=== PATIENT | male | born 1955 | race Caucasian/White ===

== ENCOUNTER → 2017-08-06 | Outpatient (CLI) | payer OTHER ==
[2017-08-06 17:46] LABS: MEAN CORPUSCULAR HEMOGLOBIN 30.2 pg (27.0-33.0); MEAN CORPUSCULAR HGB CONC 34.4 g/dl (32.0-36.5); MEAN CORPUSCULAR VOLUME 87.8 fl (80.0-96.0); RED CELL DISTRIBUTION WIDTH 13.8 % (11.5-14.5); WHITE BLOOD COUNT 10.4 10^3/uL (4.0-10.0)
[2017-08-06 17:53] LABS: CALCIUM LEVEL 8.9 MG/DL (8.8-10.2); CREATININE FOR GFR 1.41 MG/DL (0.70-1.30); POTASSIUM SERUM 4.6 MEQ/L (3.5-5.1)
[2017-08-08 14:09] LABS: PSA FREE 1.15 ng/mL; PSA TOTAL 4.8 ng/mL (0.0-4.0)
== END ==
LOC: M SMT 14:06
PROVIDERS: ATTEND Urology
DX: R33.9 Retention of urine, unspecified (principal)

== ENCOUNTER → 2017-08-24 | Outpatient (CLI) | payer OTHER ==
--- NOTE | 2017-08-24 13:22 | REP ---
RENAL ULTRASOUND: Real-time sonographic evaluation of kidneys performed. The kidneys are normal in size and echotexture, right kidney measuring 9.9 x 4.7 x 4.6 cm and left kidney 12.9 x 5.9 x 6.9 cm. There is no hydronephrosis bilaterally. Vascular calcifications are seen in both kidneys. There is a cyst in the upper pole of the left kidney 2.8 x 2.5 x 2.2 cm and a cyst containing septations in the lower pole of the left kidney 4.8 x 3.2 x 4.9 cm. There appear to be two thin internal septations within this left lower pole cyst. Incidental note is made of a complex septated cyst in the right lobe of the liver 2.6 x 2.6 x 2.5 cm. The urinary bladder is not distended and not evaluated. IMPRESSION: No hydronephrosis. Simple cyst upper pole left kidney. Cyst lower pole left kidney contains two thin internal septations. Complex septated cyst right lobe of the liver as discussed above. Signed by Luis Grant MD 08/24/2017 04:32 P
== END ==
LOC: M RAD 10:59
PROVIDERS: ATTEND Urology
DX: N28.1 Cyst of kidney, acquired (principal)

== ENCOUNTER → 2017-09-28 | Outpatient (REF) | payer OTHER ==
[~2017-09-28] MED LIST: CLAR10CA3 PO; FLOM5CAP PO; VITA-182 PO
== END ==
LOC: M SMT 17:20
PROVIDERS: ATTEND Urology
DX: Z01.818 Encounter for other preprocedural examination (principal); N40.1 Benign prostatic hyperplasia with lower urinary tract symptoms; N13.8 Other obstructive and reflux uropathy

== ENCOUNTER 2017-10-06 10:33 | Inpatient (IN) | payer OTHER ==
[~2017-10-06] VITALS: Ht 177.8 cm; Wt 80.3 kg
[2017-10-06] VITALS (7 sets, daily range): BP systolic 140–178; BP diastolic 63–88
[~2017-10-06 10:33] MED LIST changes: +MIDAZOLAM INJ 2 MG/2 ML VIAL (J2250) As Ordered ONE; +PHENYLephrine HCL 500 MCG/5 ML (100MCG/ML) SYRINGE (J2370) As Ordered ONE; +fentaNYL 100 MCG/2 ML INJECTION (J3010) As Ordered ONE
[2017-10-06] MEDS ORDERED: LIDOCAINE 1% MDV 20ML VIAL SQ PRN (10:45)
[2017-10-06] MEDS ORDERED: LR 1,000 ML IV ONE (10:45)
[2017-10-06] MEDS ORDERED: ceFAZolin 2 GM/D5W 50 ML IV BAG (J0690 PER 500MG) As Ordered ONE (10:49)
[2017-10-06] MEDS ORDERED: HYDROmorphone HCL 2 MG/ML 1ML VIAL (J1170) As Ordered ONE ×2 (12:32→14:56)
[2017-10-06] MEDS ORDERED: ROCURONIUM BROMIDE 50 MG/5 ML VIAL As Ordered ONE ×3 (12:33→14:19)
[2017-10-06] MEDS ORDERED: ONDANSETRON 4MG/2ML VIAL (J2405) As Ordered ONE (12:34)
[2017-10-06] MEDS ORDERED: KETOROLAC 60 MG/2 ML VIAL (J1885) As Ordered ONE (12:34)
[2017-10-06] MEDS ORDERED: PROPOFOL 200 MG/20 ML VIAL As Ordered ONE (12:34)
[2017-10-06] MEDS ORDERED: dexameTHASONE 4 MG/ML 1ML VIAL (J1100) As Ordered ONE (12:34)
[2017-10-06] MEDS ORDERED: LIDOCAINE 2% INJ 100 MG/5 ML SDV (FOR ANES.) As Ordered ONE (12:34)
[2017-10-06] MEDS ORDERED: METHYLENE BLUE 0.5% (5MG/ML) 10 ML AMP (PROVAYBLUE)(Q9968 PER 1MG) As Ordered ONE (12:58)
[2017-10-06] MEDS ORDERED: LABETALOL HCL 100 MG/20 ML VIAL As Ordered ONE (13:10)
[2017-10-06] MEDS ORDERED: HYDROmorphone HCL 1 MG/ML SYRINGE (J1170) IV PRN (15:30)
[2017-10-06] MEDS ORDERED: PERCOCET 5MG/325MG TAB PO PRN (15:30)
[2017-10-06] MEDS ORDERED: oxyCODONE 5MG TAB PO PRN (15:30)
[2017-10-06] MEDS ORDERED: fentaNYL 100 MCG/2 ML INJECTION (J3010) IV PRN (15:30)
[2017-10-06] MEDS ORDERED: MORPHINE 4 MG/ML 1ML SYRINGE IV PRN (15:30)
[2017-10-06] MEDS ORDERED: ONDANSETRON 4MG/2ML VIAL (J2405) IV PRN ×2 (15:30)
[2017-10-06] MEDS ORDERED: LR 1,000 ML IV SCH (15:30)
[2017-10-06 15:53] LABS: MEAN CORPUSCULAR HEMOGLOBIN 30.1 pg (27.0-33.0); MEAN CORPUSCULAR HGB CONC 35.5 g/dl (32.0-36.5); MEAN CORPUSCULAR VOLUME 84.8 fl (80.0-96.0); PLATELET COUNT, AUTOMATED 223 10^3/uL (150-450); RED CELL DISTRIBUTION WIDTH 12.8 % (11.5-14.5); WHITE BLOOD COUNT 14.8 10^3/uL (4.0-10.0)
[2017-10-06 16:07] LABS: ANION GAP 7 MEQ/L (8-16); BLOOD UREA NITROGEN 17 MG/DL (7-18); CALCIUM LEVEL 8.4 MG/DL (8.8-10.2); CARBON DIOXIDE LEVEL 29 MEQ/L (21-32); CHLORIDE LEVEL 105 MEQ/L (98-107); CREATININE FOR GFR 1.24 MG/DL (0.70-1.30); GLOMERULAR FILTRATION RATE > 60.0 (>49); GLUCOSE, FASTING 152 MG/DL (80-110); POTASSIUM SERUM 4.3 MEQ/L (3.5-5.1); SODIUM LEVEL 141 MEQ/L (136-145)
[2017-10-06] MEDS: KCL 20MEQ IN D5/0.45NS 1000ML 1,000 ML IV SCH (16:26)
[2017-10-06] MEDS: PANTOPRAZOLE 40MG INJ (PROTONIX) (C9113) IV SCH (18:47)
[2017-10-06] MEDS: ACETAMINOPHEN 650MG ER TAB (TYLENOL ARTHRITIS) PO SCH (21:17)
[2017-10-06] MEDS: KETOROLAC 30 MG/ML VIAL (J1885) IV SCH (21:17)
--- NOTE | 2017-10-06 21:34 | RO ---
DATE OF PROCEDURE: 10/06/2017 PREOPERATIVE DIAGNOSES: Prostatic hypertrophy plus bladder outlet obstruction. POSTOPERATIVE DIAGNOSES: Prostatic hypertrophy plus bladder outlet obstruction. SURGERY PERFORMED: Robotic-assisted simple prostatectomy. SURGEON: Greg Keene MD [employer]: Jessica Kumari ANESTHESIA: General. FINDINGS: Giant prostatic hypertrophy plus bladder outlet obstruction. COMPLICATIONS: None. ESTIMATED BLOOD LOSS: 50 mL HISTORY OF PRESENT ILLNESS: This is a 62-year-old male patient that has bladder outlet obstruction due to benign prostatic hypertrophy. The patient has a Mcwilliams catheter and has failed medical therapy. He has a severe large median lobe. For this reason he has consented for robotic assisted simple prostatectomy. PROCEDURE DESCRIPTION: With the patient under general anesthesia in supine modified low lithotomy position, after prepping and draping the area of concern, which included the entire genitalia and abdomen, we started by introducing a Mcwilliams catheter, #16-Hungarian into the bladder, inflated the balloon to 10 mL. We then proceeded to do an incision supraumbilically for about 2 cm in length in the midline. Through this incision was opened up peritoneal cavity and placed a balloon trocar and inflated the balloon to 40 ml, insufflated the abdomen with CO2 at a maximum pressure of 15 at high flow. We then proceeded to actively place the other trocar in a fan-shaped manner. On the right side two metallic trocars, 8 mm metallic trocars, 8 cm away from each other, on the left side 12 mm VersaStep and 8 cm away from this one an 8 mm metallic trocar in the left side in fan-shaped manner also. We then placed the patient in steep Trendelenburg position and docked the robot. On the left arm we used monopolar scissors and on the right arm we used ProGrasp for the third arm and bipolar PK on the right arm. We then proceeded to actively dissect the urachals and dropped the bladder. We then proceeded to actively with the monopolar scissors coag. We did a tranverse incision in the bladder and identified the Mcwilliams catheter, deflated the balloon and identified the giant middle lobe of the prostatic hypertrophy. We then proceeded to actively put a CT-1 needle and a ##0 Vicryl stitch in the adenoma of the median lobe of the prostate to actively have it under traction. We then passed the Ivan needle #0 silk percutaneously and passed it through the anterior bladder neck to retract the anterior bladder neck anteriorly. This exposed the trigone, both ureteral orifices and giant hyperplasia of the prostate with the middle lobe. We then proceeded with monopolar scissors to score the urothelium underneath the middle lobe near the trigone and in a circular fashion we dissected the prostate out. Once we could actually find the surgical capsule with round dissection and monopolar scissors we dissected the adenoma, lateral lobes and middle lobes and cut it at the apex of the urethra. At that moment in time we placed this into a 10 mm Endo Catch bag and then secured hemostasis with #3-0 chromic in a running fashion starting at 3-o'clock and running it to 9-o'clock with multiple stitches. This secured hemostasis. We placed FLOSEAL in the fossa of the prostatic fossa and then passed a 22-Hungarian Mcwilliams catheter three way, inflated the balloon to 20 mL in the bladder and then put it to traction to the bladder neck. We then closed the incision of the bladder with a Quill stitch in a running fashion, an absorbable barbed suture, double needle, #2-0 in a running fashion starting from the right side to the left side and then with a second needle we did a second plane and tied it on the left side. We tested it with 250 mL of normal saline and it was watertight. We then proceeded to actually take the third arm and place a drain and then took all the instruments out, undocked the robot and took all the trocars out and took the specimen through the midline incision. We closed the midline incision with separate stitches of #2-0 Vicryl and then closed the skin of each incision site with #4-0 Monocryl subcuticular stitches. We then proceeded to actively place Mastisol, Steri-Strips, telfa and Tegaderm on top of the incision site. We placed the drain to bulb suction. We then proceeded to actively put the Mcwilliams to gravity and put irrigation with normal saline through the three-way Mcwilliams catheter. PLAN: The patient will pass through recovery and then to the floor. Once irrigation is clear we will discontinue the irrgation. The patient will go home with a Mcwilliams catheter once he is tolerating pain medication orally and also regular diet. There were no complications during surgery. Pathology specimen sent: Prostate.
[2017-10-07] MEDS: KCL 20MEQ IN D5/0.45NS 1000ML 1,000 ML IV SCH ×3 (00:15→15:02)
[2017-10-07 02:00] VITALS: BP 117/63
[2017-10-07] MEDS: ACETAMINOPHEN 650MG ER TAB (TYLENOL ARTHRITIS) PO SCH ×3 (05:35→21:04)
[2017-10-07] MEDS: KETOROLAC 30 MG/ML VIAL (J1885) IV SCH ×2 (05:36→13:18)
[2017-10-07 06:00] VITALS: BP 140/77
[2017-10-07 06:59] LABS: MEAN CORPUSCULAR HEMOGLOBIN 29.9 pg (27.0-33.0); MEAN CORPUSCULAR HGB CONC 35.2 g/dl (32.0-36.5); MEAN CORPUSCULAR VOLUME 84.8 fl (80.0-96.0); PLATELET COUNT, AUTOMATED 232 10^3/uL (150-450); RED CELL DISTRIBUTION WIDTH 12.9 % (11.5-14.5); WHITE BLOOD COUNT 12.8 10^3/uL (4.0-10.0)
[2017-10-07 07:12] LABS: ANION GAP 6 MEQ/L (8-16); BLOOD UREA NITROGEN 13 MG/DL (7-18); CALCIUM LEVEL 8.2 MG/DL (8.8-10.2); CARBON DIOXIDE LEVEL 27 MEQ/L (21-32); CHLORIDE LEVEL 107 MEQ/L (98-107); CREATININE FOR GFR 1.11 MG/DL (0.70-1.30); GLOMERULAR FILTRATION RATE > 60.0 (>49); GLUCOSE, FASTING 109 MG/DL (80-110); POTASSIUM SERUM 4.5 MEQ/L (3.5-5.1); SODIUM LEVEL 140 MEQ/L (136-145)
[2017-10-07] MEDS: PANTOPRAZOLE 40MG INJ (PROTONIX) (C9113) IV SCH (08:38)
[2017-10-07 10:00] VITALS: BP 145/70
[2017-10-07 14:00] VITALS: BP 135/65
[2017-10-07 18:00] VITALS: BP_SYST 122; BP_SYST 136; BP_DIAS 64; BP_DIAS 82
[2017-10-07 22:00] VITALS: BP 150/76
[2017-10-08 06:00] VITALS: BP 142/75
[2017-10-08] MEDS ORDERED: CIPROFLOXACIN 500 MG TAB PO SCH (06:00)
[2017-10-08] MEDS: ACETAMINOPHEN 650MG ER TAB (TYLENOL ARTHRITIS) PO SCH (06:02)
[2017-10-08 07:30] LABS: MEAN CORPUSCULAR HEMOGLOBIN 30.2 pg (27.0-33.0); MEAN CORPUSCULAR HGB CONC 35.3 g/dl (32.0-36.5); MEAN CORPUSCULAR VOLUME 85.6 fl (80.0-96.0); PLATELET COUNT, AUTOMATED 224 10^3/uL (150-450); RED CELL DISTRIBUTION WIDTH 12.8 % (11.5-14.5); WHITE BLOOD COUNT 10.7 10^3/uL (4.0-10.0)
[2017-10-08 07:46] LABS: ANION GAP 7 MEQ/L (8-16); BLOOD UREA NITROGEN 15 MG/DL (7-18); CALCIUM LEVEL 8.4 MG/DL (8.8-10.2); CARBON DIOXIDE LEVEL 27 MEQ/L (21-32); CHLORIDE LEVEL 108 MEQ/L (98-107); CREATININE FOR GFR 1.19 MG/DL (0.70-1.30); GLOMERULAR FILTRATION RATE > 60.0 (>49); GLUCOSE, FASTING 86 MG/DL (80-110); POTASSIUM SERUM 4.6 MEQ/L (3.5-5.1); SODIUM LEVEL 142 MEQ/L (136-145)
[2017-10-08 08:15] VITALS: BP 142/74
[2017-10-08] MEDS: PANTOPRAZOLE 40MG INJ (PROTONIX) (C9113) IV SCH (09:51)
[2017-10-08] MEDS ORDERED: CIPR500T3 PO (10:25)
[2017-10-08] MEDS ORDERED: TYLE650T35 PO (10:25)
--- NOTE | 2017-10-08 16:38 | DSES ---
DATE OF ADMISSION: 10/06/2017 DATE OF DISCHARGE: 10/08/2017 ADMISSION DIAGNOSIS: Bladder outlet obstruction due to benign prostatic hypertrophy. DISCHARGE DIAGNOSIS: Bladder outlet obstruction due to benign prostatic hypertrophy. SURGERY PERFORMED: Robotic-assisted simple prostatectomy. ADMITTING SURGEON: Dr. Greg Keene DISCHARGE SURGEON: Dr. Greg Keene SURGERY PERFORMED BY: Dr. Greg Keene HISTORY OF PRESENT ILLNESS: This is a 62-year-old male patient that has a bladder outlet obstruction due to severe enlargement of the prostatic tissue obstructing the outlet of the bladder. He has a Mcwilliams catheter draining his bladder. He cannot urinate. A urodynamic study shows that he has bladder contractions. For this reason, he has elected to undergo a robotic-assisted simple prostatectomy. HOSPITAL COURSE: The patient did very well. By postoperative day number one, he was tolerating a regular diet, ambulating very well. Urine was clear. Matthias-Downs (COLETTE) output was very minimal. Pain was tolerated with oral pain medication. By postoperative day number two, the urine was completely clear. The irrigation was stopped. He had pain but mild pain controlled with Tylenol extended release 650 mg one tablet by mouth every eight hours. He had no fever and no chills. He was passing gas and tolerating a regular diet. The patient requested to go home and we agreed upon this. We discontinued the COLETTE drainage, took all the bandages out, and we could see that there was some blisters from the paper tape. There was no signs of infection. The patient will be going home today with a Mcwilliams catheter to gravity with a leg bag, ciprofloxacin 500 mg one tablet by mouth twice a day for 10 days and Tylenol extended release 650 mg one tablet by mouth every eight hours as needed for pain. He will followup at [facility] in seven days for removal of the Mcwilliams catheter. There were no complications during the surgery or hospitalization.
== END 2017-10-08 11:56 | disposition home or self-care (01) | DRG 480 ==
LOC: M OR 10:33 → M MSPAV 17:04
PROVIDERS: ADMIT Urology; ATTEND Urology
PROC: 8E0W4CZ Robotic Assisted Procedure of Trunk Region, Percutaneous Endoscopic Approach (ICD-10-PCS; 2017-10-06)
PROC: 0VT00ZZ Resection of Prostate, Open Approach (ICD-10-PCS; principal; 2017-10-06 12:45)
DX: N40.1 Benign prostatic hyperplasia with lower urinary tract symptoms (principal); N32.0 Bladder-neck obstruction

== ENCOUNTER → 2018-03-18 | Outpatient (CLI) | payer OTHER ==
[~2018-03-18] MED LIST changes: -CLAR10CA3 PO; -FLOM5CAP PO; +ISOVUE-370 76% 100ML VIAL (Q9967) As Ordered; -MIDAZOLAM INJ 2 MG/2 ML VIAL (J2250) As Ordered ONE; -PHENYLephrine HCL 500 MCG/5 ML (100MCG/ML) SYRINGE (J2370) As Ordered ONE; -VITA-182 PO; -fentaNYL 100 MCG/2 ML INJECTION (J3010) As Ordered ONE
== END ==
LOC: M RAD 08:03
DX: N28.1 Cyst of kidney, acquired (principal); N28.89 Other specified disorders of kidney and ureter; K76.89 Other specified diseases of liver
CPT/HCPCS: Q9967

== ENCOUNTER → 2018-08-06 | Outpatient (CLI) | payer OTHER ==
[2018-08-06 18:58] LABS: APPEARANCE, URINE CLEAR (CLEAR); BACTERIA, URINE AUTO NEGATIVE (NEGATIVE); BILIRUBIN, URINE AUTO NEGATIVE (NEGATIVE); BLOOD, URINE BLOOD NEGATIVE (NEGATIVE); COLOR, URINE STRAW (YELLOW); GLUCOSE, URINE (UA) AUTO NEGATIVE (NEGATIVE); KETONE, URINE AUTO NEGATIVE (NEGATIVE); LEUKOCYTE ESTERASE, URINE AUTO NEGATIVE (NEGATIVE); MUCUS, URINE SMALL (NEGATIVE); NITRITE, URINE AUTO NEGATIVE (NEGATIVE); PROTEIN, URINE AUTO NEGATIVE (NEGATIVE); RBC, URINE AUTO 0 /HPF (0-3); SPECIFIC GRAVITY URINE AUTO 1.008 (1.002-1.035); SQUAMOUS EPITHELIAL CELL UR AU 0 /HPF (0-6); UROBILINOGEN, URINE AUTO 0.2 mg/dL (0.0-2.0); WBC, URINE AUTO 1 /HPF (0-3)
[2018-08-10 08:17] LABS: PSA TOTAL 0.9 ng/mL (0.0-4.0)
== END ==
LOC: M SMT 14:56
DX: N40.0 Benign prostatic hyperplasia without lower urinary tract symptoms (principal)
CPT/HCPCS: 84154

== ENCOUNTER → 2018-09-13 | Outpatient (CLI) | payer OTHER | LOC: M RAD 12:22 | DX: N28.1 Cyst of kidney, acquired (principal); N26.1 Atrophy of kidney (terminal) | CPT/HCPCS: 74183 ==

== ENCOUNTER → 2021-10-07 | Outpatient (REF) | payer MEDICARE ==
[~2021-10-07] MED LIST changes: +ACET650T61 PO; +CIPR500T3 PO; +CLAR10CA3 PO; +FLOM0.4C39 PO; -ISOVUE-370 76% 100ML VIAL (Q9967) As Ordered; +VITA-182 PO
== END ==
LOC: M LAB REF 13:02
PROVIDERS: ATTEND Internal Medicine Nephrology
DX: N18.2 Chronic kidney disease, stage 2 (mild) (principal)

== ENCOUNTER → 2021-10-23 | Outpatient (CLI) | payer MEDICARE ==
[~2021-10-23] MED LIST changes: +PROHANCE 279.3MG/ML 5ML VIAL As Ordered ONE
--- NOTE | 2021-10-24 09:00 | REP ---
INDICATION: FOLLOW-UP HEPATIC AND RENAL CYSTS. COMPARISON: 09/13/2018 TECHNIQUE: Pre and post contrast 3T MRI of the abdomen was performed utilizing various sequences. Gadolinium utilized: 7 cc ProHance FINDINGS: The simple left renal cysts seen on the prior MRI are again seen to be simple. The largest left renal cyst has increased slightly in size now measuring 5.1 cm previously 4.5 cm measured in the same dimension. There are no enhancing renal masses involving either kidney. Chronic renal cortical atrophic changes are again seen on the right status quo. No enhancing hepatic lesions have developed. The dominant cyst seen in the right lobe of the liver has increased slightly in size today measuring 2.9 cm in its greatest dimension previously 2.8 cm. Other subcentimeter sized cysts are again noted status quo. The spleen, pancreas, and adrenal glands are unchanged and again seen to be within normal limits. There is no para-aortic adenopathy. There is no free fluid. The cortical and marrow signal seen throughout the imaged osseous structures is unchanged and again seen to be within normal limits. Once again, note is made of a duplex collecting system on the right which conjoins just distal to the renal pelvis. IMPRESSION: No acute abnormalities are identified. Essentially stable findings as described above. <Electronically signed by Rush David > 10/24/21 [id number]
== END ==
LOC: M RAD 15:59
PROVIDERS: ATTEND Internal Medicine Nephrology
DX: N28.1 Cyst of kidney, acquired (principal)
CPT/HCPCS: 74183; A9576